=== PATIENT | female | born 1980 | race Hispanic/Latino ===

== ENCOUNTER 2017-08-07 02:32 | Emergency (ER) | payer SELFPAY ==
[2017-08-07] MEDS ORDERED: Sodium Chloride 0.9% 1,000 ML IV STA (03:15)
--- NOTE | 2017-08-07 03:35 | ED PDOC ---
Arrival/HPI - General Historian: Patient - History of Present Illness Symptom Course: Worsening <Adriana Muro - Last Filed: 08/07/17 06:38> <Nash Moon - Last Filed: 08/08/17 01:20> - General Chief Complaint: Chest Pain Time Seen by Provider: 08/07/17 03:12 - History of Present Illness Narrative History of Present Illness (Text): 08/07/17 03:31 37 year old female presents for evaluation of withdrawal symptoms, recently stopped using Xanax. She states she was given a 6 month prescription for Xanax and states its all gone. 3 days ago she began a Xanax taper, last took 0.5mg yesterday, previous day 1 mg, day prior to that 2mg. 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 She has headaches, shakes, chest pain, nausea, vomiting, diarrhea. No current suicidal or homocidal ideations. (Adriana Muro) Past Medical History - Cardiac Hx Hypertension: Yes - Pulmonary Hx Asthma: Yes - Neurological Other/Comment: TBI 10 years ago. - HEENT Hx Blind: Yes (blind) Hx Deafness: Yes (right ear) - Endocrine/Metabolic Hx Hypothyroidism: Yes - Psychiatric Hx Anxiety: Yes Hx Post Traumatic Stress Disorder: Yes Hx Substance Use: Yes - Anesthesia Hx Anesthesia: No <Adriana Muro - Last Filed: 08/07/17 06:38> Family/Social History Family/Social History: Unknown Family HX Smoking Status: Heavy Smoker > 10 Cigarettes Daily Hx Alcohol Use: Yes Frequency of alcohol use: Few days per week Hx Substance Use: Yes Substance used: marijuana, coccaine, enedina <Adriana Muro - Last Filed: 08/07/17 06:38> Allergies/Home Meds <Adriana Muro - Last Filed: 08/07/17 06:38> <Nash Moon - Last Filed: 08/08/17 01:20> Allergies/Adverse Reactions: Allergies No Known Allergies Allergy (Verified 08/07/17 02:47) Review of Systems - Review of Systems Constitutional: Other (chills, sweats) Eyes: absent: Vision Changes ENT: absent: Hearing Changes, Epistaxis Respiratory: absent: SOB, Cough, Wheezing Cardiovascular: Chest Pain (pressure/tightness). absent: Calf Pain Gastrointestinal: Diarrhea, Nausea, Vomiting Genitourinary Female: Normal Skin: absent: Rash Neurological: Headache. absent: Focal Weakness, Facial Droop Endocrine: Diaphoresis Psychiatric: Anxiety, Depression. absent: Suicidal Ideation <Adriana Muro - Last Filed: 08/07/17 06:38> Physical Exam Vital Signs Reviewed: Yes Temperature: Afebrile Blood Pressure: Hypertensive Pulse: Regular Respiratory Rate: Tachypneic Appearance: Positive for: Uncomfortable (diaphoretic) Pain Distress: Severe Mental Status: Positive for: Alert and Oriented X 3 - Systems Exam Head: Present: Atraumatic, Normocephalic Pupils: Present: PERRL. No: Pinpoint Conjunctiva: Present: Normal Mouth: Present: Moist Mucous Membranes, Normal Tounge, Normal Teeth Respiratory/Chest: Present: Clear to Auscultation, Respiratory Distress. No: Wheezes Cardiovascular: Present: Regular Rate and Rhythm, Tachycardic Back: Present: Normal Inspection Lower Extremity: No: Edema Neurological: Present: GCS=15, Other (body shakes) Skin: Present: Warm, Diaphoretic Psychiatric: Present: Alert, Oriented x 3, Normal Insight, Anxious. No: Suicidal Ideation, Homicidal Ideation <Adriana Muro - Last Filed: 08/07/17 06:38> Vital Signs Temp Pulse Resp BP Pulse Ox 08/07/17 05:54 98 F 95 H 18 129/57 L 100 08/07/17 05:45 98 F 95 H 18 129/57 L 100 08/07/17 05:37 98.5 F 92 H 18 129/57 L 97 08/07/17 04:48 90 20 143/96 H 100 08/07/17 03:51 109 H 20 151/91 H 100 08/07/17 02:47 97.8 F 137 H 22 184/100 H 98 Medical Decision Making <Adriana Muro - Last Filed: 08/07/17 06:38> <Nash Moon - Last Filed: 08/08/17 01:20> ED Course and Treatment: 08/07/17 03:40 37 year old female, appears to be in withdrawals, refusing any treatment with benzodiazepines. declined tylenol for headache. -cbc -cmp -tsh/t4 -uds -ecg -zofran for nausea -case d/w Dr. Moon, monitor closely 08/07/17 04:57 Patient now more calm but remains anxious about withdrawal symptoms and myalgias. HR now 70-80s, BP 143/96. No longer vomiting or complaining of headache. Will give Xanax 0.5mg. Patient seen and examined by Dr. Moon. ([facility]) - Lab Interpretations Lab Results: 08/07/17 03:20 08/07/17 03:20 Lab Results 08/07/17 03:20: Sodium 146, Potassium 4.0, Chloride 104, Carbon Dioxide 21 L, Anion Gap 25 H, BUN 6 L, Creatinine 0.7, Est GFR ( Amer) > 60, Est GFR ( Non-Af Amer) > 60, Random Glucose 114 H, Calcium 10.1, Total Bilirubin 0.8, AST 50 H, ALT 60 H, Alkaline Phosphatase 58, Total Protein 8.1, Albumin 4.5, Globulin 3.6, Albumin/Globulin Ratio 1.2, Thyroxine (T4) 11.0, TSH 3rd Generation 2.56 08/07/17 03:20: WBC 10.3, RBC 4.72, Hgb 14.5, Hct 41.9, MCV 88.7, MCH 30.7, MCHC 34.6, RDW 14.5, Plt Count 248, MPV 10.6, Neut % (Auto) 63.2, Lymph % (Auto ) 31.1, Bailey % (Auto) 4.4, Eos % (Auto) 0.8, Baso % (Auto) 0.5, Neut # (Auto) 6.5, Lymph # (Auto) 3.2, Bailey # (Auto) 0.5, Eos # (Auto) 0.1, Baso # (Auto) 0.1 - Medication Orders Current Medication Orders: Discontinued Medications Alprazolam (Xanax) 0.5 mg PO ONCE ONE Stop: 08/07/17 04:57 Last Admin: 08/07/17 05:02 Dose: 0.5 mg Sodium Chloride (Sodium Chloride 0.9%) 1,000 mls @ 999 mls/hr IV .Q1H1M STA Stop: 08/07/17 04:15 Last Admin: 08/07/17 03:20 Dose: 999 mls/hr eMAR Start Stop Document 08/07/17 03:20 EBD (Rec: 08/07/17 03:21 EBD [id number]) Intravenous Solution Start Date 08/07/17 Start Time 03:20 End Date 08/07/17 End time 04:20 Total Infusion Time 60 Ondansetron HCl (Zofran Odt) 4 mg PO STAT STA Stop: 08/07/17 03:17 Last Admin: 08/07/17 03:27 Dose: 4 mg Disposition/Present on Arrival - Present on Arrival Any Indicators Present on Arrival: No - Disposition Have Diagnosis and Disposition been Completed?: Yes Disposition Time: 05:20 <Adriana Muro - Last Filed: 08/07/17 06:38> <Nash Moon - Last Filed: 08/08/17 01:20> - Disposition Diagnosis: Withdrawal from benzodiazepine Disposition: HOME/ ROUTINE Condition: IMPROVED Discharge Instructions (ExitCare): Drug Abuse and Drug Addiction (DC), Prescription Drug Abuse (DC) Print Language: VATICAN CITIZEN Additional Instructions: follow up with your primary doctor in 1-2 days return to the ED with any worsening or concerning symptoms Referrals: [facility] [Outside] [facility] [Outside] Forms: [facility] (Korean) Attending/Attestation <Adriana Muro - Last Filed: 08/07/17 06:38> - Attestation I have personally seen and examined this patient.: Yes I have fully participated in the care of the patient.: Yes I have reviewed all pertinent clinical information, including history, physical exam and plan: Yes <Nash Moon - Last Filed: 08/08/17 01:20> - Attestation Notes (Text): 08/08/17 01:20 pt seen and examined after small amout of xanax pt pulse and bp improved (Nash Moon)
[2017-08-07 03:40] LABS: BASO # 0.1 K/uL (0.0-0.2); BASO % 0.5 % (0.0-2.0); EOS # 0.1 K/uL (0.0-0.7); EOS % 0.8 % (0.0-4.0); HEMOGLOBIN 14.5 g/dL (12.0-16.0); LYMPH # 3.2 K/uL (1.0-4.3); LYMPH % 31.1 % (20.0-40.0); MEAN CELL VOLUME 88.7 fl (81.0-99.0); MEAN CORPUSCULAR HEMOGLOBIN 30.7 pg (27.0-31.0); MEAN CORPUSCULAR HGB CONC 34.6 g/dL (33.0-37.0); MEAN PLATELET VOLUME 10.6 fl (7.2-11.7); MONO # 0.5 K/uL (0.0-0.8); MONO % 4.4 % (0.0-10.0); NEUT # 6.5 K/uL (1.8-7.0); NEUT % 63.2 % (50.0-75.0); NRBC % 0.1 % (0.0-0.0); RBC 4.72 Mil/uL (3.80-5.20); RED CELL DISTRIBUTION WIDTH 14.5 % (11.5-14.5); WHITE BLOOD COUNT 10.3 K/uL (4.8-10.8)
[2017-08-07 03:47] LABS: ALB/GLOB RATIO 1.2 (1.0-2.1); ALBUMIN 4.5 g/dL (3.5-5.0); ALT/SGPT 60 U/L (9-52); AST/SGOT 50 U/L (14-36); BLOOD UREA NITROGEN 6 mg/dl (7-17); CALCIUM 10.1 mg/dL (8.4-10.2); GFR AFRICAN-AMERICAN > 60; GFR NON-AFRICAN AMERICAN > 60
[2017-08-07 05:38] VITALS: BP 129/57; RESP 18
[2017-08-07 05:45] VITALS: PULSE 95; TEMP 98; O2SAT 100
== END 2017-08-07 05:55 | disposition home or self-care (01) ==
LOC: H.ER 02:32
DX: F13.239 Sedative, hypnotic or anxiolytic dependence with withdrawal, unspecified (principal); E03.9 Hypothyroidism, unspecified; F43.10 Post-traumatic stress disorder, unspecified; I10 Essential (primary) hypertension; Z87.820 Personal history of traumatic brain injury
CPT/HCPCS: 80053; 81025; 84436; 84443; 85025; 96360; 99285; J7040